=== PATIENT | female | born 2000 | race Caucasian/White ===

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

== ENCOUNTER 2022-03-03 10:00 | Outpatient (RCR) | payer OTHER, SELFPAY ==
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
== END 2022-03-03 15:05 | disposition home or self-care (01) ==
LOC: HO.PTCHIC 10:00
PROVIDERS: Visit Provider Internal Medicine
DX: M54.6 Pain in thoracic spine (principal)
CPT/HCPCS: 97110; 97161; 97162

== ENCOUNTER 2024-02-25 03:26 | Emergency (ER) | payer OTHER, SELFPAY ==
[2024-02-25 03:32] VITALS: BP 130/92; PULSE 90; RESP 17; TEMP 36.6; O2SAT 97; BMI 40.6
--- NOTE | 2024-02-25 03:55 | ED.ABDPAIN ---
HPI - Abdominal Pain General Chief Complaint: Abdominal Pain Stated Complaint: severe abd pain Time Seen by Provider: 02/25/24 03:48 Source: patient Mode of arrival: ambulatory Limitations: no limitations History of Present Illness ED Provider: RODNEY NEAL narrative: 24 yo female with PMH of IUD but no other past medical history notes over the past month intermittent abdominal pains she notes last Tuesday went to [facility] in [place] and had labs and CT scan done which was normal. She went to yesterday and said she had UTI given macrobid has taken one dose. She notes worsening pain since yesterday n/v x1, diarrhea and diffuse abdominal pain. She denies hx of IBD or IBS. She has had 2 negative US with her PCP as well. She denies any other issues such as sick contacts, travel, food exposures MD elicited complaint: abdominal pain Pertinent past history: none Onset (ago): month(s) (1 month but much worse this past week and worse today) Pain Consistency: colicky Location: diffuse Severity: moderate Quality: stabbing and aching Radiation: none Migration to: no migration Exacerbating factors: movement Relieving factors: nothing Context: other (one dose of macrobid for UTI started last night) Associated symptoms: nausea, vomiting and diarrhea Related Data Previous Rx's ?Medication ?Instructions ?Recorded ibuprofen 600 mg tablet 600 mg PO Q6H PRN pain #30 tabs 11/17/21 cyclobenzaprine 10 mg tablet 10 mg PO BEDTIME #14 tabs 11/30/21 meloxicam 15 mg tablet 15 mg PO DAILY #14 tabs 11/30/21 dicyclomine 20 mg tablet 20 mg PO TID PRN abdominal 02/25/24 discomfort #30 tabs famotidine 20 mg tablet (Pepcid) 20 mg PO DAILY PRN abdominal 02/25/24 discomfort #30 tabs ondansetron 4 mg disintegrating 4 mg PO Q8H PRN nausea and 02/25/24 tablet vomiting #20 tabs Allergies Allergy/AdvReac Type Severity Reaction Status Date / Time Seasonal Allergies Allergy Nasal Verified 02/25/24 03:34 Discharge Review of Systems Review of Systems Constitutional : No Weight loss, No Fever, No Chills ENT/Mouth : No sore throat, No Rhinorrhea Eyes: No Swelling, No Redness Cardiovascular : No Chest Pain, No SOB, NoEdema Respiratory : No Cough, No Sputum, No Wheezing Gastrointestinal : Positive Nausea, Positive Vomiting, positive Diarrhea, positive abdominal Pain, No Hematochezia, No Melena Genitourinary : No Dysuria, No Urinary Frequency, No Hematuria, No Urgency Musculoskeletal : No joint pain, No Myalgias, No Joint Swelling Skin : No Skin Lesions, No rash Neuro : No Weakness, No Numbness, No Dizziness, No Headache Psych : No Anxiety/Panic, No Depression Heme/Lymph: No Bruising, No Lymphadenopathy Endocrine : No Polyuria, No Polydipsia All other systems reviewed and are negative. [facility] Past Medical History Attestation statement: The following information was validated with the patient. Source: old records reviewed Medical History Lower thoracic back pain Social History Social History (Updated 02/25/24 @ 04:32 by Amira Cochran DO) Patient Tobacco Use Status: Never used Tobacco Smoked in Last 30 Days: No Use of substances other than those prescribed or required for medical reasons: No Advance Directives: No Advance Directives Information Provided: Yes Do you have a plan to hurt others: No Plan Physical Exam ED Vital Signs: Vital Signs - 24 hr 02/25/24 03:32 02/25/24 06:32 Temperature 97.8 F 97.7 F Pulse Rate 90 79 Respiratory Rate 17 16 Blood Pressure 130/92 H 108/66 Pulse Oximetry 97 98 Oxygen Delivery Method Room Air Room Air BMI result Body Mass Index 40.6 Appearance: Alert. Oriented X3. No acute distress. Eyes: Pupils equal, round and reactive to light. ENT: Pharynx normal. Neck: Normal inspection. Neck supple. CVS: Normal heart rate and rhythm. Pulses normal. Respiratory: No respiratory distress. Breath sounds normal. Abdomen: Soft and mild diffuse ttp no rebound or guarding Skin: Skin warm and dry. Normal skin color. Extremities: No lower extremity edema. Neuro: Oriented X 3. No motor deficit. No sensory deficit. Course Course Course Narrative: CT scan from [facility] 02/[address], kidneys not stone, appendix normal no pathology Reevaluation(s) Reevaluation #1: 1 month of symptoms negative labs, negative CT scan 8 days ago with similar symptoms, US negative at this time I do not think she warrants more imaging pain is diffuse she has appointment with GI in April but wants to be seen sooner - was told by GI team it was not emergent and could be seen when possible - they initially did not want to pursue GI workup and recommended PCP workup will give number to see if she can get in our GI department Medical Decision Making Medical Decision Making [facility] Narrative: 24 yo female with no sig PMH here with c/o n/v x 1, diarrhea and diffuse intermittent abdominal pain with neg US x 2, recent negative CT scan, started on macrobid for UTI - at this time she notes negative US as well with PCP x 2. Will obtain basic labs, WBC count, CRP, UA - obtain CT scan from [facility] given her recent sig negative work up unless lab derangement I would avoid further radiation. IV toradol ordered Differential Diagnosis Differential Diagnoses: The differential diagnosis associated with the presentation includes IBS, enteritis, abdominal pain Admission/Observation Consideration of admission/observation: Escalation of care including admission/observation considered no wbc count ua contaminated neg CRP at this time she has appointment with GI in April will trial dicyclomine 1 month of symptoms with previous US and CT scans and normal labs at this time needs GI customer service and sales consultant Lab Data [facility] Lab Attestation statement: I reviewed the patient's lab results. 02/25/24 03:51 02/25/24 03:51 Labs: Lab Results 02/25/24 02/25/24 Range/Units 03:51 03:56 WBC 7.6 (4.8-10.8) X10*3/uL RBC 4.78 (4.20-5.50) X10*6/uL Hgb 14.3 (12.0-16.0) g/dl Hct 42.7 (37.0-47.0) % MCV 89.3 (80.0-98.0) fL MCH 29.9 (27.0-33.0) pg MCHC 33.5 (31.0-35.0) g/dl RDW 11.8 (11.0-16.0) % Plt Count 254 (160-400) X10*3/uL MPV 10.4 (9.4-12.3) fL Immature Gran % (Auto) 0.3 (0.0-0.4) % Neut % (Auto) 65.8 (45-73) % Lymph % (Auto) 21.3 (20-40) % [place] % (Auto) 6.2 (2-11) % Eos % (Auto) 5.9 H (0-4) % Baso % (Auto) 0.5 (0-2) % Lymph # (Auto) 1.6 (1.2-4.9) X10*3/uL [place] # (Auto) 0.5 (0.1-1.2) X10*3/uL Eos # (Auto) 0.5 H (0.0-0.4) X10*3/uL Baso # (Auto) 0.0 (0.0-0.2) X10*3/uL Abs Immat Gran (auto) 0.02 (0.00-0.03) X10*3/uL Absolute Neuts (auto) 5.0 (2.0-8.3) x10*3/uL Absolute Nucleated RBC 0.000 (0.0-0.012) X10*3/uL Nucleated RBC % (auto) 0.0 (0.0-0.2) /100WBC Sodium 139 (135-145) mmol/L Potassium 3.8 (3.3-5.1) mmol/L Chloride 103 (96-108) mmol/L Carbon Dioxide 25 (22-29) mmol/L Anion Gap 15 (12-20) BUN 14 (9-16) mg/dL Creatinine 0.83 (0.5-1.4) mg/dL Estim Creat Clear Calc 159.8 Estimated GFR > 60 Random Glucose 114 (60-115) mg/dL Calcium 10.1 (8.4-10.2) mg/dL Total Bilirubin 0.6 (0.0-1.0) mg/dL AST 16 (5-31) U/L ALT 12 (0-31) U/L Alkaline Phosphatase 34 L (39-117) U/L C-Reactive Protein 0.26 (< or = 0.50) mg/dL Total Protein 8.3 H (6.5-8.0) g/dL Albumin 4.4 (3.5-5.0) g/dL Lipase 17 (8-78) U/L Beta HCG, Quant < 2 mIU/mL Urine Color Yellow Urine Appearance Clear Urine pH 5.5 (5.0-9.0) Ur Specific [place] >= 1.030 H (1.005-1.025) Urine Protein Negative (Neg-Trace) mg/dL Urine Glucose (UA) Negative (Negative) mg/dL Urine Ketones Negative (Negative) mg/dL Urine Blood Negative (Negative) Urine Nitrite Negative (Negative) Ur Leukocyte Esterase Trace H (Negative) Urine RBC 0-2 (0-2) /HPF Urine WBC 6-10 H (0-5) /HPF Ur Squamous Epith Cells 6-10 (0-2) /HPF Urine Bacteria 1+ (None Seen) Hyaline Casts 0-2 (0-2) /LPF External Record Review External record reviewed: Outpatient record and Prior outpatient radiology Medications Administered Discontinued Medications Generic Name Dose Route Start Last Admin Trade Name Freq PRN Reason Stop Dose Admin Dicyclomine HCl 10 mg 02/25/24 04:48 02/25/24 04:51 Dicyclomine Hcl 10 Mg Capsule PO 02/25/24 04:49 10 mg ONCE ONE Administration Famotidine 20 mg 02/25/24 05:41 02/25/24 05:55 Famotidine/Pf 20 Mg/2 Ml Vial IVPUSH 02/25/24 05:42 20 mg ONCE ONE Administration Ketorolac Tromethamine 15 mg 02/25/24 05:41 02/25/24 05:55 Ketorolac Tromethamine 15 Mg/Ml Vial IVPUSH 02/25/24 05:42 15 mg ONCE ONE Administration Discharge Plan Discharge Clinical Impression: Abdominal pain Patient Disposition: Home, Self-Care Instructions: Abdominal Pain (ED) Additional Instructions: urine shows no infection labs including kidney function, liver and pancreas are normal no elevated white blood cell count normal infl marker CRP given recent ultrasound and CT scans that were also normal I would not repeat imaging at this time start food diary and elimination diet return for any worsening symptoms such as fevers, recurrent blood in stool, or any other concerns follow up with GI Prescriptions: New famotidine [Pepcid] 20 mg tablet 20 mg PO DAILY PRN (Reason: abdominal discomfort) Qty: 30 0RF ondansetron 4 mg tablet,disintegrating 4 mg PO Q8H PRN (Reason: nausea and vomiting) Qty: 20 0RF dicyclomine 20 mg tablet 20 mg PO TID PRN (Reason: abdominal discomfort) Qty: 30 0RF No Action ibuprofen 600 mg tablet 600 mg PO Q6H PRN (Reason: pain) Qty: 30 0RF meloxicam 15 mg tablet 15 mg PO DAILY Qty: 14 0RF cyclobenzaprine 10 mg tablet 10 mg PO BEDTIME Qty: 14 0RF Referrals: [facility] [Provider Group] Print Language: Occitan
[2024-02-25 04:01] LABS: Basophils Percent Auto 0.5 % (0-2); Eosinophils Absolute Auto 0.5 X10*3/uL (0.0-0.4); Eosinophils Percent Auto 5.9 % (0-4); Hematocrit 42.7 % (37.0-47.0); Hemoglobin 14.3 g/dl (12.0-16.0); Imm Gran Abs Auto 0.02 X10*3/uL (0.00-0.03); Imm Gran Pct Auto 0.3 % (0.0-0.4); Lymphocytes Absolute Auto 1.6 X10*3/uL (1.2-4.9); Lymphocytes Percent Auto 21.3 % (20-40); MANUAL DIFF FLAG NO; Mean Corpuscular HGB Conc 33.5 g/dl (31.0-35.0); Mean Corpuscular Hemoglobin 29.9 pg (27.0-33.0); Mean Corpuscular Volume 89.3 fL (80.0-98.0); Mean Platelet Volume 10.4 fL (9.4-12.3); Monocytes Absolute Auto 0.5 X10*3/uL (0.1-1.2); Monocytes Percent Auto 6.2 % (2-11); Neutrophils Percent Auto 65.8 % (45-73); Platelet Count 254 X10*3/uL (160-400); Red Blood Count 4.78 X10*6/uL (4.20-5.50); Red Cell Distribution Width 11.8 % (11.0-16.0); White Blood Count 7.6 X10*3/uL (4.8-10.8)
[2024-02-25 04:12] LABS: Appearance Urine Clear; Color Urine Yellow; Glucose Urine UA Negative (Negative); Leukocyte Esterase Urine Trace (Negative); Nitrite Urine Negative (Negative); PH 5.5 (5.0-9.0); Specific Gravity - Urine >= 1.030 (1.005-1.025); UMIC TRIGGER UACC YES; Urine Blood Negative (Negative); Urine Ketones Negative (Negative); Urine Protein Negative (Neg-Trace)
[2024-02-25 04:17] LABS: Bacteria Urine 1+ (None Seen); Hyaline Casts Urine 0-2 /LPF (0-2); RBC Urine 0-2 /HPF (0-2); UACC Culture Trigger YES
[2024-02-25 04:18] LABS: Anion Gap 15 (12-20)
[2024-02-25 04:20] LABS: Alanine Aminotransferase 12 U/L (0-31); Albumin Level 4.4 g/dL (3.5-5.0); Alkaline Phosphatase 34 U/L (39-117); Aspartate Amino Transferase 16 U/L (5-31); Bilirubin Total 0.6 mg/dL (0.0-1.0); Blood Urea Nitrogen 14 mg/dL (9-16); C Reactive Protein 0.26 mg/dL (< or = 0.50); Calcium 10.1 mg/dL (8.4-10.2); Carbon Dioxide 25 mmol/L (22-29); Chloride 103 mmol/L (96-108); Creatinine Clr Calc Pharmacy 159.8; Estimated Glomerular Filt Rate > 60; Glucose Random 114 mg/dL (60-115); HCG Quantitative < 2 mIU/mL; Lipase 17 U/L (8-78); Potassium 3.8 mmol/L (3.3-5.1); Sodium 139 mmol/L (135-145); Total Protein 8.3 g/dL (6.5-8.0)
[2024-02-25] MEDS: Dicyclomine HCl 10 MG CAPSULE PO (04:51)
--- NOTE | 2024-02-25 04:59 | PC.NURSE ---
Pt medicated per [facility] Plan of care ongoing.
[2024-02-25] MEDS: Famotidine/PF 20 MG/2 ML VIAL IVPUSH (05:55)
[2024-02-25] MEDS: Ketorolac Tromethamine 15 MG/ML VIAL IVPUSH (05:55)
[2024-02-25 06:32] VITALS: BP 108/66; PULSE 79; RESP 16; TEMP 36.5; O2SAT 98
[2024-02-25 06:41] VITALS: BP 108/66; PULSE 79; RESP 16; TEMP 36.5; O2SAT 98
== END 2024-02-25 06:44 | disposition home or self-care (01) ==
PROVIDERS: Emergency Provider Emergency Medicine; PCP Family Medicine
DX: R10.9 Unspecified abdominal pain (principal)
CPT/HCPCS: 36415; 80053; 81001; 83690; 84702; 85025; 86140; 87086; 96374; 96375; 99284; J1885; J7120

== ENCOUNTER 2024-04-01 17:50 | Emergency (ER) | payer OTHER, SELFPAY ==
--- NOTE | ~2024-04-01 | US_ITS ---
CLINICAL HISTORY: leg pain, discoloration Venous duplex ultrasound left lower extremity Comparison: None Findings: The visualized deep veins are fully compressible with normal Doppler color flow and spectral tracings. Contralateral (right) common femoral vein is patent. IMPRESSION: 1. Negative for left lower extremity deep vein thrombosis. This document has been electronically signed by: Tae Laughlin MD on 04/01/2024 20:45:45
--- OUTSIDE RECORDS SUMMARY | 2024-04-01 17:52 | XMS_ITS | Continuity of Care Document ---
Author Organization [facility] Address [address] Phone Care Team Providers Care Typing Checker Name Role Phone Brigido VOGEL, PhD, DABGUSTAVO, Marlee Unavailable Un available Allergies, Adverse Reactions, Alerts Substance Reaction Status Criticality No Known allergies Procedures Procedure Date Removal Of Tonsils Office/Outpatient Visit, New Advance Directives Directive Yes / No Effective Date File Name Resuscitation Not Answered N/A N/A Life Support Not Answered N/A N/A Intubation Not Answered N/A N/A Antibiotics Not Answered N/A N/A IV Fluid Support Not Answered N/A N/A Tube Feed Not Answered N/A N/A Other Directive N/A N/A WARNING:The information contained in this section is historical and is provided for information only and does not constitute a legal document or any assurance that the information is still accurate. Please verify the information with the rueda of the legal document before using it for clinical purposes. Encounters Encounter Description Practice Location Reason(s) For Visit Diagnoses Date Provider Providers Copied on Encounter [facility], [address] [place] [address], [address] [place] [address] , tel:[phone] Brigido No Information Jun- 0- 2 Brigido Whalen. [address] [place], [place], [address] [place] [address], . tel:[phone] [facility], [address] [place], [place], [address] [place] [address] , tel:[phone] [facility] No Information 2 Brigido Whalen. [address] [place], [place], [id number], . tel:[phone] Referring Provider: Gal Bruno MD, [address], [place], [address]. tel:[phone] Office/Outpa tient Visit, [facility], [address] [place], [place], [id number] , tel:[phone] Lc sore throat (chief complaint) Hypertrophic TonsilsHypertrophi c Tonsils 2 No Information Referring Provider: Gal Bruno MD, [address], [place], [address]. tel:[phone] Family History Family Member Type Diagnosis Age At Onset Sister Problem (finding) Alive and well Father Problem (finding) Heart disease Mother Problem (finding) Alive and well Brother Problem (finding) Alive and well Brother Problem (finding) Family history of asthm a Father Problem (finding) Maternal history of samantha betes mellitus Father Problem (finding) Alive and well Payers Payer name Insurance type Covered constitution party ID Authortheoa merlin(s) [employer] [place] [id number] Social History Type Description Quantity Date Captured Comments Alcohol Use Details No Caffeine Use Details No Tobacco Use Status No Information Smoking Status No Information Sex Female Chief Complaint And Reason For Visit No Information Reason For Referral Reason For Referral No Information History Of Present Illness Encounter Date Complaint History Of Prese nt Illness No Information Functional Status Date Functional Assessmen t No Information Instructions Date Instruction Additional Infor mation No Information Assessments Type Assessment Date No Information Patient Care Teams Name Effective Dates (start - stop) Status Members No Information
[2024-04-01 18:03] VITALS: BP 133/76; PULSE 117; RESP 20; TEMP 36.9; O2SAT 98; BMI 40.0
--- NOTE | 2024-04-01 18:08 | ED_ITS ---
HPI - Extremity Problem General Chief complaint: Extremity Problem Stated complaint: L leg pain and discoloration Time Seen by Provider: 04/01/24 21:26 Source: patient Limitations: no limitations History of Present Illness ED Provider: Barbara Blandon PA-C HPI Narrative: 24-year-old morbidly obese female presents with left lower extremity pain x3 days. No objective swelling, no injury, no recent travel. Patient also states she developed acute onset nausea vomiting today. No sick contacts with same symptoms, no diarrhea at this time no fevers, no cough or cold symptoms. Denies chest pain or shortness of breath. Related Data Previous Rx's ?Medication ?Instructions ?Recorded ibuprofen 600 mg tablet 600 mg PO Q6H PRN pain #30 tabs 11/17/21 cyclobenzaprine 10 mg tablet 10 mg PO BEDTIME #14 tabs 11/30/21 meloxicam 15 mg tablet 15 mg PO DAILY #14 tabs 11/30/21 dicyclomine 20 mg tablet 20 mg PO TID PRN abdominal 02/25/24 discomfort #30 tabs famotidine 20 mg tablet (Pepcid) 20 mg PO DAILY PRN abdominal 02/25/24 discomfort #30 tabs ondansetron 4 mg disintegrating 4 mg PO Q8H PRN nausea and 02/25/24 tablet vomiting #20 tabs ondansetron HCl 4 mg tablet 4 mg PO Q8H PRN nausea and 04/02/24 vomiting #10 tabs Allergies Allergy/AdvReac Type Severity Reaction Status Date / Time Seasonal Allergies Allergy Nasal Verified 04/01/24 18:05 Discharge Review of Systems 2 Review of Systems: Yes all other systems are reviewed and are negative Constitutional: Constitutional: Denies fatigue and Denies fever(s) Cardiovascular: Cardiovascular: Denies chest pain and Denies dyspnea Respiratory: Respiratory: Denies cough and Denies dyspnea Gastrointestinal: Gastrointestinal: Denies abdominal pain, Denies diarrhea, Reports nausea and Reports vomiting Endocrine: Endocrine: Denies fatigue PMFSH Past Medical History Attestation statement: The following information was validated with the patient. Medical History Lower thoracic back pain Social History Social History (Updated 02/25/24 @ 04:32 by Amira Cochran DO) Patient Tobacco Use Status: Never used Tobacco Advance Directives: No Advance Directives Information Provided: No Patient : No Physical Exam 2 Vital Signs: Vital Signs: Last Vital Signs Temp 98.7 F 04/02/24 00:29 Pulse 94 04/02/24 00:29 Resp 16 04/02/24 00:29 BP 126/85 04/02/24 00:29 Pulse Ox 99 04/02/24 00:29 O2 Del Method Room Air 04/02/24 00:29 BMI result Body Mass Index 40.0 Const: Other: Alert well-appearing Orientation/consciousness: patient oriented x3 Resp: Effort & Inspection: normal respiratory effort Cardio: Other: Normal peripheral perfusion no pedal edema Skin: Other: Warm dry no rash Neuro: General: patient oriented x3, no focal motor deficits and CN's II-XI intact bilaterally Extrem: Other: No objective swelling of the left calf no deformity, no skin changes, the limb is warm and well perfused Psych: Other: Calm cooperative Course Course Course Narrative: This is a Rapid Medical Examination (RME) performed by Ann Villalta PA-C in triage. Full HPI, ROS, assessment and treatment plan per primary provider in the Main ED. 24 yo female here for eval of paresthesias and discoloration to her left lower leg/ knee x3 days with pain beginning yesterday. no calf pain. no difficulty ambulating. no recent travel/long car rides. no injury/ trauma + no discoloration noted to LLE. 2+ dp/pt pulses. ambulating w/ steady gait. sensation intact. extremities warm. Plan: venous duplex, basic blood work Medications Administered Discontinued Medications Generic Name Dose Route Start Last Admin Trade Name Juan Miguelq PRN Reason Stop Dose Admin Ondansetron HCl 4 mg 04/02/24 00:14 04/02/24 00:26 Ondansetron Odt 4 Mg Tab.Rapdis TRANSLINGU 04/02/24 00:15 4 mg ONCE ONE Administration Medical Decision Making Medical Decision Making [facility] Narrative: 24-year-old morbidly obese female presents with left lower extremity pain x3 days. No objective swelling, no injury, no recent travel. Patient also states she developed acute onset nausea vomiting today. No sick contacts with same symptoms, no diarrhea at this time no fevers, no cough or cold symptoms. Denies chest pain or shortness of breath. Problem: Obesity History: Per patient I have considered the following differential diagnoses: Compartment syndrome, arterial occlusion, DVT, fracture, dislocation, Caruso cyst, viral gastroenteritis Plan: Screening labs and DVT study were obtained from triage. The patient has not sustained an acute injury, fracture dislocation least likely, x-rays not warranted. Patient made a, the that she had skin changes discoloration, there are none. Hence I thought about compartment syndrome and vascular compromise, not present, the limb is warm well-perfused, her pain is not out of proportion with the exam, the calf is not tense. In regard to her acute onset nausea vomiting, this is likely viral gastroenteritis, such illness has been prevalent within the community. We will send with home care instructions. I have independently reviewed the following tests: Labs: No leukocytosis, not anemic, no electrolyte abnormality DVT study left lower extremity:Findings: The visualized deep veins are fully compressible with normal Doppler color flow and spectral tracings. Contralateral (right) common femoral vein is patent. IMPRESSION: 1. Negative for left lower extremity deep vein thrombosis. This document has been electronically signed by: Tae Laughlin MD on 04/01/2024 20:45:45 Lab Data 04/01/24 18:29 04/01/24 18:29 Labs: Lab Results 04/01/24 Range/Units 18:29 WBC 7.6 (4.8-10.8) X10*3/uL RBC 4.89 (4.20-5.50) X10*6/uL Hgb 14.6 (12.0-16.0) g/dl Hct 43.1 (37.0-47.0) % MCV 88.1 (80.0-98.0) fL MCH 29.9 (27.0-33.0) pg MCHC 33.9 (31.0-35.0) g/dl RDW 11.8 (11.0-16.0) % Plt Count 227 (160-400) X10*3/uL MPV 10.7 (9.4-12.3) fL Immature Gran % (Auto) 0.3 (0.0-0.4) % Neut % (Auto) 73.6 H (45-73) % Lymph % (Auto) 18.7 L (20-40) % Hendricks % (Auto) 5.8 (2-11) % Eos % (Auto) 1.1 (0-4) % Baso % (Auto) 0.5 (0-2) % Lymph # (Auto) 1.4 (1.2-4.9) X10*3/uL Hendricks # (Auto) 0.4 (0.1-1.2) X10*3/uL Eos # (Auto) 0.1 (0.0-0.4) X10*3/uL Baso # (Auto) 0.0 (0.0-0.2) X10*3/uL Abs Immat Gran (auto) 0.02 (0.00-0.03) X10*3/uL Absolute Neuts (auto) 5.6 (2.0-8.3) x10*3/uL Absolute Nucleated RBC 0.000 (0.0-0.012) X10*3/uL Nucleated RBC % (auto) 0.0 (0.0-0.2) /100WBC Sodium 140 (135-145) mmol/L Potassium 3.9 (3.3-5.1) mmol/L Chloride 107 (96-108) mmol/L Carbon Dioxide 24 (22-29) mmol/L Anion Gap 13 (12-20) BUN 8 L (9-16) mg/dL Creatinine 0.75 (0.5-1.4) mg/dL Estim Creat Clear Calc 175.5 Estimated GFR > 60 Random Glucose 100 (60-115) mg/dL Calcium 9.5 (8.4-10.2) mg/dL Total Bilirubin 1.0 (0.0-1.0) mg/dL AST 18 (5-31) U/L ALT 8 (0-31) U/L Alkaline Phosphatase 30 L (39-117) U/L Total Protein 8.0 (6.5-8.0) g/dL Albumin 4.2 (3.5-5.0) g/dL Discharge Plan Discharge Clinical Impression: Leg pain, left, Viral gastroenteritis Patient Disposition: Home, Self-Care Instructions: Gastroenteritis (ED), Leg Pain (ED) Additional Instructions: The ultrasound of the leg revealed no clot. There could be numerous reasons why you are having bilateral leg discomfort. They include poor circulation, arthritis, autoimmune diseases for example. You need to follow up with your primary care provider for further workup. In the meantime, try the use of compression stockings, they can be purchased anywhere. You can use ibuprofen 600 mg taken every 6 hours with food, for your discomfort. In regard to your acute onset nausea vomiting, you likely have viral gastroenteritis, such illness has been prevalent within the community. Uses Zofran as needed for nausea. Like I said this illnesses viral, it is self-limiting. Prescriptions: New ondansetron HCl 4 mg tablet 4 mg PO Q8H PRN (Reason: nausea and vomiting) Qty: 10 0RF No Action ibuprofen 600 mg tablet 600 mg PO Q6H PRN (Reason: pain) Qty: 30 0RF famotidine [Pepcid] 20 mg tablet 20 mg PO DAILY PRN (Reason: abdominal discomfort) Qty: 30 0RF ondansetron 4 mg tablet,disintegrating 4 mg PO Q8H PRN (Reason: nausea and vomiting) Qty: 20 0RF dicyclomine 20 mg tablet 20 mg PO TID PRN (Reason: abdominal discomfort) Qty: 30 0RF meloxicam 15 mg tablet 15 mg PO DAILY Qty: 14 0RF cyclobenzaprine 10 mg tablet 10 mg PO BEDTIME Qty: 14 0RF Interventions: ED Discharge Assessment Last Done: 04/02/24 00:29 Discharge Date/Time: 04/02/24 00:29 Print Language: Sami
[2024-04-01 18:36] LABS: MANUAL DIFF FLAG NO
[2024-04-01 18:38] LABS: Basophils Percent Auto 0.5 % (0-2); Eosinophils Absolute Auto 0.1 X10*3/uL (0.0-0.4); Eosinophils Percent Auto 1.1 % (0-4); Hematocrit 43.1 % (37.0-47.0); Hemoglobin 14.6 g/dl (12.0-16.0); Imm Gran Abs Auto 0.02 X10*3/uL (0.00-0.03); Imm Gran Pct Auto 0.3 % (0.0-0.4); Lymphocytes Absolute Auto 1.4 X10*3/uL (1.2-4.9); Lymphocytes Percent Auto 18.7 % (20-40); Mean Corpuscular HGB Conc 33.9 g/dl (31.0-35.0); Mean Corpuscular Hemoglobin 29.9 pg (27.0-33.0); Mean Corpuscular Volume 88.1 fL (80.0-98.0); Mean Platelet Volume 10.7 fL (9.4-12.3); Monocytes Absolute Auto 0.4 X10*3/uL (0.1-1.2); Monocytes Percent Auto 5.8 % (2-11); Neutrophils Absolute Auto 5.6 x10*3/uL (2.0-8.3); Neutrophils Percent Auto 73.6 % (45-73); Platelet Count 227 X10*3/uL (160-400); Red Blood Count 4.89 X10*6/uL (4.20-5.50); Red Cell Distribution Width 11.8 % (11.0-16.0); White Blood Count 7.6 X10*3/uL (4.8-10.8)
[2024-04-01 18:54] LABS: Alanine Aminotransferase 8 U/L (0-31); Albumin Level 4.2 g/dL (3.5-5.0); Alkaline Phosphatase 30 U/L (39-117); Anion Gap 13 (12-20); Aspartate Amino Transferase 18 U/L (5-31); Blood Urea Nitrogen 8 mg/dL (9-16); Calcium 9.5 mg/dL (8.4-10.2); Carbon Dioxide 24 mmol/L (22-29); Chloride 107 mmol/L (96-108); Creatinine Clr Calc Pharmacy 175.5; Estimated Glomerular Filt Rate > 60; Glucose Random 100 mg/dL (60-115); Potassium 3.9 mmol/L (3.3-5.1); Sodium 140 mmol/L (135-145)
[2024-04-01 20:24] VITALS: BP 135/70; PULSE 95; RESP 16; TEMP 37; O2SAT 98
--- OUTSIDE RECORDS SUMMARY | 2024-04-01 20:28 | XMS_ITS | Continuity of Care Document ---
Author Organization [facility] Address [address] Phone Care Team Providers Care Fashion Intern Name Role Phone Brigido VOGEL, PhD, DABGUSTAVO, [...] Diagnoses Date Provider Providers Copied on Encounter [facility], [address] [place] [address], [address] [place] [address] , tel:[phone] Brigido No Information Jun- 0- 2 Brigido Whalen. [address] [place], [place], [address] [place] [address], . tel:[phone] [facility], [address] [place], [place], [address] [place] [address] , tel:[phone] [facility] No Information 2 Brigido Whalen. [address] [place], [place], [id number], . tel:[phone] Referring Provider: Gal Bruno MD, [address], [place], [address]. tel:[phone] Office/Outpa tient Visit, [facility], [address] [place], [place], [id number] , tel:[phone] Lc sore throat (chief complaint) Hypertrophic TonsilsHypertrophi c Tonsils 2 No Information Referring Provider: Gal Bruno MD, [address], [place], [address]. tel:[phone] Family History Family Member Type Diagnosis Age At Onset Sister Problem (finding) Alive and well Father Problem (finding) Heart disease Mother Problem (finding) Alive and well Brother Problem (finding) Alive and well Brother Problem (finding) Family history of asthm a Father Problem (finding) Maternal history of samantha betes mellitus Father Problem (finding) Alive and well Payers Payer name Insurance type Covered alliance party ID Authortheoa merlin(s) [employer] [place] [id number] Social History Type Description Quantity Date Captured [...]
[2024-04-01 22:04] VITALS: BP 126/85; PULSE 94; RESP 16; TEMP 37.1; O2SAT 99
--- NOTE | 2024-04-01 23:25 | PC.NURSE ---
pt came out of pv2 to talk with this rn. pt states she is feeling numbness in the other arm (Right). pt is tearful and suffers from anxiety and takes meds for it. pt is now nausea.
--- NOTE | 2024-04-01 23:52 | PC.NURSE ---
pt wants to leave to shredder picker her child.
[2024-04-02] MEDS: Ondansetron ODT 4 MG TAB.RAPDIS TRANSLINGU (00:26)
[2024-04-02 00:29] VITALS: BP 126/85; PULSE 94; RESP 16; TEMP 37.1; O2SAT 99
== END 2024-04-02 00:29 | disposition home or self-care (01) ==
PROVIDERS: Physician Assistant Medical; Emergency Provider Emergency Medicine; PCP Family Medicine
DX: M79.605 Pain in left leg (principal); K52.9 Noninfective gastroenteritis and colitis, unspecified; R60.0 Localized edema; R11.2 Nausea with vomiting, unspecified; Z79.899 Other long term (current) drug therapy
CPT/HCPCS: 36415; 80053; 85025; 93971; 99284

== ENCOUNTER → 2024-04-01 18:07 | Outpatient (BNV) | payer OTHER, SELFPAY | PROVIDERS: PCP Family Medicine; Visit Provider Radiology Neuroradiology | DX: M79.662 Pain in left lower leg (principal) | CPT/HCPCS: 93971 ==